=== PATIENT | female | born 1990 | race Caucasian/White ===

== ENCOUNTER 2018-01-05 17:16 | Inpatient (IN) ==
[~2018-01-05 17:16] MED LIST: Diphtheria/Tetanus/Pertussis Vaccine Inj 0.5 ML Syringe IM ONE; Measles/Mumps/Rubella Vaccine Inj 0.5 ML Vial SQ ONE
[2018-01-05] MEDS ORDERED: Sodium Chlor 0.9% Inj 500 ML IV.SIG PRN (17:56)
[2018-01-05] MEDS ORDERED: Sod Chloride 0.9% Inj 1,000 ML IV.CONT PRN (17:56)
[2018-01-05] MEDS ORDERED: Naloxone Inj 0.4 MG/ML Vial IV.PUSH PRN ×2 (17:56→22:19)
[2018-01-05] MEDS ORDERED: fentaNYL Citrate Inj 100 MCG/2 ML Ampul IV.PUSH PRN ×2 (17:56)
[2018-01-05] MEDS ORDERED: Oxytocin 30 Units/500ml Premix 30 UNITS/500 ML BAG IV.SIG ONE ×2 (17:56→22:19)
[2018-01-05] MEDS ORDERED: Citric Acid/Sodium Citrate Liq 30 ML UDC PO SCH (18:00)
--- NOTE | 2018-01-05 18:08 | P.HPOB ---
Patient Name: Rica Mendez Date of : 89 Patient Status: Inpatient Attending Provider: Vinh Holguin Date: 01/05/18 17:59 Initialization Date: 01/05/18 17:59 History of Present Illness Primary Care Physician: Chelsie Dueñas Chief Complaint: Broke my water at 4 PM History of Present Illness: 27-year-old at 38 weeks and 5 days presents complaining of spontaneous rupture of membranes at 4 PM care has been uneventful to date per patient her primary acquisition marketing manager is Dr. Holguin. She reports she is GBS negative Weeks Gestation:: 38 Para: 1 : 2 - Inpatient Certification I certify that the inpatient services were ordered in accordance with Medicare regulations governing the order. This includes certification that hospital inpatient services are reasonable and necessary and in the case of services not specified as inpatient-only under 42 CFR 419.22(n), that they are appropriately provided as inpatient services in accordance to with the 2-midnight benchmark under 43 CFR 412.3(e) Estimated Total Length of Stay (Days): 2 Plans for Post Hospital Care: Home Review of Systems All other systems reviewed negative except as stated in HPI PMFSH - Travel History Recent Travel in the [place] Within the Last 8 Weeks: No Recent Travel Out of the Country Within the Last 8 Weeks: No Medications and Allergies Allergies Allergy/AdvReac Type Severity Reaction Status Date / Time No Known Allergies Allergy Verified 01/05/18 17:41 Home Medications Medication Instructions Recorded Confirmed Type PNV cmb#95-ferrous fumarate-FA 1 tab PO DAILY 01/05/18 01/05/18 History [] Exam Vital signs: Vital Signs 01/05/18 17:34 Pulse Rate 111 H Blood Pressure 129/80 Intake & Output 01/04/18 01/05/18 01/05/18 18:59 06:59 18:59 Weight 93 kg Narrative: GENERAL: Well-nourished, well-developed patient. SKIN: Warm and dry. HEAD: Normocephalic and atraumatic. EYES: No scleral icterus. No injection or drainage. ENT: No nasal drainage noted. Mucous membranes pink. Airway patent. NECK: Supple, trachea midline. No JVD. CARDIOVASCULAR: Regular rate and rhythm without murmurs, gallops, or rubs. RESPIRATORY: Breath sounds equal bilaterally. No accessory muscle use. BREASTS: Bilateral exam showed no masses , no retractions, no nipple discharge. ABDOMEN/GI: Abdomen soft, non-tender, bowel sounds present, no rebound, no guarding Gravid to 39 weeks size Fundal Height: Consistent with gestational age GENITOURINARY: External Genitalia: intact and normal in appearance BUS glands: Unremarkable Cervix: Moderate Dilatation: 3 Effacement: 70 Station: -2 Presentation: Vertex Membranes: Grossly ruptured on sterile speculum exam Uterine Contractions: Minimal FHT's: Category: 1 EXTREMITIES: No cyanosis or edema. BACK: Nontender without obvious deformity. No CVA tenderness. NEUROLOGICAL: Awake and alert. Motor and sensory grossly within normal limits. . Normal speech. Assessment and Plan - Diagnosis (1) Leakage, amniotic fluid Code(s): O42.90 - Premature rupture of membranes, unspecified as to length of time between rupture and onset of labor, unspecified weeks of gestation Status : Acute (2) 38 weeks gestation of Code(s): Z3A.38 - 38 weeks gestation of Status: Acute - Plan Admit/Dr. Holguin contacted-orders placed Discharge Plan - Discharge Disposition Patient Disposition: 30 Still Patient - Physicians Team ED Provider: Kathrine Emmanuel Primary Care Provider: NOT REQUIRED,
[2018-01-05 18:56] LABS: Baso % (Auto) 0.1 % (0.0-2.0); Eos % (Auto) 0.4 % (0.0-4.0); Hematocrit 35.7 % (35.0-46.0); Lymph # (Auto) 1.6 th/mm3 (1.0-4.8); Mean Corpuscular HGB Conc 33.5 % (32.0-36.0); Mean Corpuscular Volume 89.8 fL (80.0-100.0); Mean Platelet Volume 8.4 fL (7.0-11.0); Mono # (Auto) 0.7 th/mm3 (0.0-0.9); Mono % (Auto) 7.8 % (0.0-8.0); Neut # (Auto) 6.3 th/mm3 (1.8-7.7); Neut % (Auto) 72.7 % (16.0-70.0); Platelet Count 228 th/mm3 (150-450); Red Blood Count 3.98 mil/mm3 (4.00-5.30); Red Cell Distribution Width 13.8 % (11.6-17.2); White Blood Count 8.6 th/mm3 (4.0-11.0)
[2018-01-05] MEDS ORDERED: Lidocaine 1% Inj 50 ML Vial ONE (20:28)
[2018-01-05] MEDS ORDERED: fentaNYL 2MCG-Bupiv 0.125% Epi 150 ML EPIDURAL ONE (20:33)
[2018-01-05] MEDS ORDERED: Lidocaine PF 1% Inj 5 ML Vial ONE (20:42)
[2018-01-05] MEDS ORDERED: Lidocaaine 1.5%/Epinephrine 1:200,000 PF Inj 5 ML Amp ONE (20:42)
[2018-01-05] MEDS ORDERED: fentaNYL 2MCG-Bupiv 0.125% Epi 150 ML EPIDURAL PRN (21:22)
[2018-01-05] MEDS ORDERED: fentaNYL Citrate Inj 100 MCG/2 ML Ampul EPIDURAL ONE (21:22)
[2018-01-05] MEDS ORDERED: Oxytocin 30 Units/500ml Premix 30 UNITS/500 ML BAG IV.CONT PRN (22:19)
[2018-01-05] MEDS ORDERED: Bisacodyl 10 MG Supp RECTAL PRN (22:19)
[2018-01-05] MEDS ORDERED: Witch Hazel 50%/Glyderin 12.5% 40 Pad Jar RECTAL PRN (22:19)
[2018-01-05] MEDS ORDERED: Benzocaine 20% Top Spray 60 ML Can TOPICAL PRN (22:19)
[2018-01-05] MEDS ORDERED: Zolpidem Tartrate 5 MG Tablet PO PRN (22:19)
[2018-01-05] MEDS ORDERED: Acetaminophen 325 MG Tablet PO PRN (22:19)
--- NOTE | 2018-01-05 22:29 | P.OBDELI ---
Weeks Gestation: 38 Patient Started Active Labor: Yes Active Labor Start Date: 01/05/18 Medical Induction of Labor: No Artificial Rupture of Membrane: No Anesthesia: Epidural Vaginal Delivery: Normal Presentation: Occiput anterior Nuchal Cord: None Delayed Cord Clamping (45 sec): Yes Shoulder Dystocia: Dave maneuver done Placenta: Spontaneous delivery, Intact, Uterus explored +, 3 vessel cord Estimated blood loss (mL): 300 Infant: Male Infant Male A score (1 min): 8 score (5 min): 9 ([place] delivery of [place]. 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
[2018-01-06 06:46] LABS: Amphetamine Urine With Conf Neg (Neg); Benzodiazepine Urine With Conf Neg (Neg)
--- NOTE | 2018-01-06 08:13 | P.PNOB ---
Subjective Post day: 1 Objective Vital Signs/I&O: Vital Signs 01/05/18 17:34 01/05/18 17:45 01/05/18 19:24 Temperature 98.1 F 98.7 F Pulse Rate 111 H 98 H Respiratory Rate 18 Blood Pressure 129/80 117/84 01/05/18 19:25 01/05/18 20:00 01/05/18 20:26 Temperature Pulse Rate 91 H Respiratory Rate 16 16 16 Blood Pressure 125/78 01/05/18 20:45 01/05/18 20:50 01/05/18 20:56 Temperature 98.7 F Pulse Rate 87 107 H Respiratory Rate 16 Blood Pressure 138/95 H 118/84 01/05/18 21:30 01/05/18 21:34 01/05/18 21:36 Temperature Pulse Rate 71 59 L 60 Respiratory Rate 18 18 Blood Pressure 114/75 96/51 L 90/42 L 01/05/18 21:50 01/05/18 21:52 01/05/18 21:55 Temperature Pulse Rate 82 111 H Respiratory Rate 18 Blood Pressure 122/59 L 125/78 01/05/18 22:30 01/05/18 22:40 01/05/18 22:45 Temperature Pulse Rate 83 102 H Respiratory Rate 16 16 Blood Pressure 98/62 L 127/79 01/05/18 23:10 01/05/18 23:24 01/05/18 23:40 Temperature Pulse Rate 94 H Respiratory Rate 16 16 16 Blood Pressure 120/64 01/06/18 00:40 Temperature 97.6 F Pulse Rate 63 Respiratory Rate 18 Blood Pressure 115/63 Intake & Output 01/05/18 01/06/18 01/06/18 18:59 06:59 18:59 Intake Total 1000 / 1000 Balance 1000 / 1000 Weight 93 kg Intake: IV 1000 / 1000 LR 1000 mL Inj 1,000 ML @ 125 1000 / 1000 mls/hr IV.CONT .Q8H [facility] Rx#: [id number] Result Diagrams: 01/05/18 18:30 Objective Remarks: GENERAL: Well-nourished, well-developed patient. CARDIOVASCULAR: Regular rate and rhythm without murmurs, gallops, or rubs. RESPIRATORY: Breath sounds equal bilaterally. No accessory muscle use. ABDOMEN/GI: Abdomen soft, non-tender. Fundus: Firm, non-tender at umbilicus. GENITOURINARY: Light to moderate bleeding. EXTREMITIES: No cyanosis or edema, non-tender, without signs of DVT. Medications and IVs: Active Medications Acetaminophen (Tylenol) 650 mg PO Q4H PRN PRN Reason: PAIN SCALE 1 TO 2 Al Hydroxide/Mg Hydroxide (Milk Of Magnesia Liq) 30 ml PO Q12H PRN PRN Reason: Mild Constipation Benzocaine (Americaine 20% Top [place]) 1 spray TOPICAL Q4H PRN PRN Reason: For Perineum Discomfort Last Admin: 01/06/18 04:40 Dose: 1 spray Bisacodyl (Dulcolax Supp) 10 mg RECTAL DAILY PRN PRN Reason: SEVERE CONSITIPATION Ephedrine Sulfate (Ephedrine/Ns Syringe) 10 mg IV.PUSH UNSCH PRN PRN Reason: SEE LABEL COMMENTS Stop: 01/06/18 21:23 Last Admin: 01/05/18 21:39 Dose: 10 mg Fentanyl/Bupivacaine/Sodium Chlor (Fentanyl 2 Mcg-Bupiv 0.125% Epi) 150 mls @ 12 mls/hr EPIDURAL PRN PRN PRN Reason: for Labor Pain Oxytocin (Pitocin 30 Units/Ns 500 Ml Premix) 30 units in 500 mls @ 100 mls/hr IV.CONT UNSCH PRN PRN Reason: Heavy bleeding Ibuprofen (Motrin) 800 mg PO Q8H PRN PRN Reason: For Cramping Last Admin: 01/06/18 04:37 Dose: 800 mg Lactulose (Lactulose Liq) 30 ml PO DAILY PRN PRN Reason: SEVERE CONSITIPATION Miscellaneous Information (Misc Information) 1 each OTHER UNSCH PRN PRN Reason: SEE LABEL COMMENTS Stop: 01/06/18 21:23 Miscellaneous Information (Misc Information) 1 each OTHER UNSCH PRN PRN Reason: SEE LABEL COMMENTS Stop: 01/06/18 21:23 Naloxone HCl (Narcan Inj) 0.1 mg IV.PUSH Q2M PRN PRN Reason: for opiate reversal Ondansetron HCl (Zofran Odt) 4 mg PO Q6H PRN PRN Reason: NAUSEA OR VOMITING Vit/Calcium/Iron/Folic Ac (Stuartnatal Plus 3) 1 tab PO DAILY MANUELA Senna/Docusate Sodium (Kimberly-Colace) 1 tab PO BID MANUELA Sennosides (Senokot) 17.2 mg PO Q12H PRN PRN Reason: Moderate Constipation Sodium Chloride (Ns Flush) 2 ml IV.FLUSH BID MANUELA Sodium Chloride (Ns Flush) 2 ml IV.FLUSH PRN PRN PRN Reason: FLUSH AFTER USING IV ACCESS Witch Anastasia/Glycerin (Tucks Pads) 1 applicatio RECTAL QID PRN PRN Reason: HEMORRHOIDS Last Admin: 01/06/18 04:39 Dose: 1 applicatio Zolpidem Tartrate (Ambien) 5 mg PO HS PRN PRN Reason: SLEEP Assessment and Plan - Diagnosis (1) 38 weeks gestation of Code(s): Z3A.38 - 38 weeks gestation of Status: Resolved (2) (normal spontaneous vaginal delivery) Code(s): O80 - Encounter for full-term uncomplicated delivery Status: Acute Plan: routine care - Plan PPD1 pt doing well routine care f/u on labs and order urinalysis denies CP, SOB, edema, or abdominal pain routine care Discharge Planning: dc home tomorrow
[2018-01-06] MEDS: Prenatal Vit/Ca/Iron/Folic Acid Tablet PO SCH (08:36)
[2018-01-06] MEDS: Senna/Docusate Sodium 8.6/50 MG Tablet PO SCH ×2 (08:36→21:13)
[2018-01-06] MEDS ORDERED: Diphtheria/Tetanus/Pertussis Vaccine Inj 0.5 ML Syringe IM ONE (19:00)
--- NOTE | 2018-01-07 07:44 | P.PNOB ---
Subjective Post day: 2 Objective Vital Signs/I&O: Vital Signs 01/06/18 08:00 01/06/18 20:00 01/07/18 07:00 Temperature 98.0 F 98.3 F 97.9 F Pulse Rate 50 L 72 62 Respiratory Rate 18 18 18 Blood Pressure 103/63 140/83 93/51 L Result Diagrams: 01/05/18 18:30 Objective Remarks: GENERAL: Well-nourished, well-developed patient. CARDIOVASCULAR: Regular rate and rhythm without murmurs, gallops, or rubs. RESPIRATORY: Breath sounds equal bilaterally. No accessory muscle use. ABDOMEN/GI: Abdomen soft, non-tender. Fundus: Firm, non-tender at umbilicus. GENITOURINARY: Light to moderate bleeding. EXTREMITIES: No cyanosis or edema, non-tender, without signs of DVT. Medications and IVs: Active Medications Acetaminophen (Tylenol) 650 mg PO Q4H PRN PRN Reason: PAIN SCALE 1 TO 2 Al Hydroxide/Mg Hydroxide (Milk Of Magnesia Liq) 30 ml PO Q12H PRN PRN Reason: Mild Constipation Benzocaine (Americaine 20% Top [place]) 1 spray TOPICAL Q4H PRN PRN Reason: For Perineum Discomfort Last Admin: 01/06/18 04:40 Dose: 1 spray Bisacodyl (Dulcolax Supp) 10 mg RECTAL DAILY PRN PRN Reason: SEVERE CONSITIPATION Fentanyl/Bupivacaine/Sodium Chlor (Fentanyl 2 Mcg-Bupiv 0.125% Epi) 150 mls @ 12 mls/hr EPIDURAL PRN PRN PRN Reason: for Labor Pain Oxytocin (Pitocin 30 Units/Ns 500 Ml Premix) 30 units in 500 mls @ 100 mls/hr IV.CONT UNSCH PRN PRN Reason: Heavy bleeding Ibuprofen (Motrin) 800 mg PO Q8H PRN PRN Reason: For Cramping Last Admin: 01/07/18 02:38 Dose: 800 mg Lactulose (Lactulose Liq) 30 ml PO DAILY PRN PRN Reason: SEVERE CONSITIPATION Naloxone HCl (Narcan Inj) 0.1 mg IV.PUSH Q2M PRN PRN Reason: for opiate reversal Ondansetron HCl (Zofran Odt) 4 mg PO Q6H PRN PRN Reason: NAUSEA OR VOMITING Vit/Calcium/Iron/Folic Ac (Stuartnatal Plus 3) 1 tab PO DAILY [facility] Last Admin: 01/06/18 08:36 Dose: 1 tab Senna/Docusate Sodium (Kimberly-Colace) 1 tab PO BID [facility] Last Admin: 01/06/18 21:13 Dose: 1 tab Sennosides (Senokot) 17.2 mg PO Q12H PRN PRN Reason: Moderate Constipation Sodium Chloride (Ns Flush) 2 ml IV.FLUSH BID [facility] Last Admin: 01/06/18 21:37 Dose: Not Given Sodium Chloride (Ns Flush) 2 ml IV.FLUSH PRN PRN PRN Reason: FLUSH AFTER USING IV ACCESS Witch Anastasia/Glycerin (Tucks Pads) 1 applicatio RECTAL QID PRN PRN Reason: HEMORRHOIDS Last Admin: 01/06/18 04:39 Dose: 1 applicatio Zolpidem Tartrate (Ambien) 5 mg PO HS PRN PRN Reason: SLEEP Assessment and Plan - Diagnosis (1) 38 weeks gestation of Code(s): Z3A.38 - 38 weeks gestation of Status: Resolved - Plan PPD2 pt doing well routine care denies CP, SOB, edema, or abdominal pain Discharge Planning: dc home today
[2018-01-07] MEDS: Prenatal Vit/Ca/Iron/Folic Acid Tablet PO SCH (08:34)
[2018-01-07] MEDS: Senna/Docusate Sodium 8.6/50 MG Tablet PO SCH (08:34)
--- NOTE | 2018-01-07 09:00 | P.DS ---
Date of admission: 01/05/18 17:55 Primary care physician: NOT REQUIRED Attending physician on discharge: Vinh Holguin Anticipated date of discharge: 01/07/18 Brief History from admission: 38 weeks SROM, DS: Diagnosis - Discharge Diagnosis (1) 38 weeks gestation of Status: Resolved (2) (normal spontaneous vaginal delivery) Status: Acute DS: Medications - Discharge Medications Prescriptions: ibuprofen 800 mg PO Q8H PRN #30 tab PRN Reason: For Cramping DS: Summary Hospital Course: term SROM Routine - Time Spent with Patient Total time spent providing and/or coordinating discharge services: Less than 30 minutes Exam Vital signs: Vital Signs 01/06/18 20:00 01/07/18 07:00 Temperature 98.3 F 97.9 F Pulse Rate 72 62 Respiratory Rate 18 18 Blood Pressure 140/83 93/51 L Narrative: see post exam Results Procedures completed during hospitalization: Labs on day of discharge: Labs from last 24 hours 01/06/18 09:12 Blood Type O Negative Ab Screen Tube Method Negative Blood Bank Comment Discharge Plan - Discharge Disposition Patient Disposition: 01 Discharge Home - Discharge Condition Condition: Good - Discharge Order Discharge Orders: Discharge Order (Routine); Ordered 01/07/18 Ordered By: Michelle Soliman MAGAZINE EDITOR Clear for Discharge (Routine); Ordered 01/07/18 Ordered By: Michelle Soliman - Discharge Details Anticipated Discharge Date: 01/07/18 - Physicians Team Primary Care Provider: NOT REQUIRED, Attending Provider: Vinh Holguin
[2018-01-07 10:07] VITALS: BP 111/63; PULSE 72; RESP 16; TEMP 98.8
== END 2018-01-07 16:45 | disposition home or self-care (01) ==
LOC: HOBED 17:16 → H2E 17:30 → H1EA 01-06 00:36
PROVIDERS: ADMIT Obstetrics & Gynecology; ATTEND Obstetrics & Gynecology